=== PATIENT | female | born 1945 | race Caucasian/White ===

== ENCOUNTER 2017-06-03 06:42 | Day surgery (SDC) | payer MEDICARE, BC ==
[2017-06-03] MEDS ORDERED: Lidocaine 2% 100 MG/5 ML Syringe IVPUSH ONE (06:43)
[2017-06-03] MEDS ORDERED: Midazolam 1 MG/ML 2 ML SDV IV ONE (06:43)
[2017-06-03] MEDS ORDERED: Propofol 200 MG/20 ML SDV IV ONE (06:43)
[2017-06-03] MEDS ORDERED: Lactated Ringers 1,000 ML IV SCH (06:45)
[2017-06-03] MEDS ORDERED: Sodium Chloride 0.9% 10 ML Syringe FLUSH PRN (06:45)
--- NOTE | 2017-06-03 08:13 | PCM.OPNOTE ---
- General Post-Op/Procedure Note Date of Surgery/Procedure: 06/03/17 Operative Procedure(s): egd with bx Findings: gastritis esophagitis Pre Op Diagnosis: epigastric abd pain Post-Op Diagnosis: gastritis. esophagitis Anesthesia Technique: MAC Primary Surgeon: Savage Salazar Anesthesia Provider: Toma Calvin Pathology: stomach and esophagus Complications: None Condition: Good Free Text/Narrative:: see dictation
--- NOTE | 2017-06-03 08:49 | OR ---
DATE OF OPERATION: 06/03/2017 SURGEON: Savage Salazar MD PROCEDURE PERFORMED: EGD with biopsy. PREOPERATIVE DIAGNOSIS: Epigastric abdominal pain. POSTOPERATIVE DIAGNOSES: Gastritis and esophagitis. INDICATIONS FOR PROCEDURE: This is a 71-year-old white female who complains of a history of epigastric abdominal pain that has been going on for several months. She was offered and accepted an EGD as part of the workup. DESCRIPTION OF PROCEDURE: After an excellent IV sedation was administered, the bite block was inserted. The flexible endoscope was passed without difficulty down the patient's esophagus into the stomach. The stomach was insufflated. Scope was passed through the pylorus to the second portion of the duodenum and slowly withdrawn. The following findings were noted. The duodenum was unremarkable. Stomach demonstrated some mild gastritis especially in the area of the antrum. GE junction measured at approximately 35 cm. There was some irritation along the Z-line itself and biopsies were taken in a circumferential manner. The remainder of the esophageal exam was unremarkable. Stomach was deflated. Scope was removed. The patient tolerated the procedure well and was taken to recovery in good condition. /[id number] /MODL
[2017-06-03 10:08] VITALS: BP 124/65
== END 2017-06-03 09:10 | disposition home or self-care (01) ==
LOC: FB.SDS 06:42
PROVIDERS: ATTEND Surgery
DX: K29.50 Unspecified chronic gastritis without bleeding (principal); K20.9 Esophagitis, unspecified; I10 Essential (primary) hypertension; E78.5 Hyperlipidemia, unspecified; Z90.49 Acquired absence of other specified parts of digestive tract; Z88.8 Allergy status to other drugs, medicaments and biological substances; Z79.899 Other long term (current) drug therapy; Z90.710 Acquired absence of both cervix and uterus; Z98.51 Tubal ligation status; Z87.891 Personal history of nicotine dependence
CPT/HCPCS: 00810; 43239; 88305; 88313; 88342; J2250; J2704; J7120